=== PATIENT | male | born 1990 | race American Indian/Alaskan Native ===

== ENCOUNTER 2020-04-04 10:15 | Emergency (ER) | payer OTHER ==
[2020-04-04 10:25] VITALS: BP 118/66
--- NOTE | 2020-04-04 10:26 | Emergency Department Report ---
ED Male HPI - General Chief complaint: Urogenital-Male Stated complaint: PAIN IN PENIS Time Seen by Provider: 04/04/20 10:24 Source: patient Mode of arrival: Ambulatory Limitations: No Limitations - History of Present Illness Initial comments: Dysuria and penile dc. Public health risk. Known exposure per woman he was with. no testicular pain VS normal Location: penis Radiation: none Worsens with: urination discharge - Related Data Sexually active: Yes Previous Rx's Medication Instructions Recorded Last Taken Type Azithromycin [Zithromax TAB] 1,000 mg PO ONCE #2 tablet 04/04/20 Unknown Rx ED Review of Systems ROS: Stated complaint: PAIN IN PENIS Other details as noted in HPI Comment: All other systems reviewed and negative ED Past Medical Hx - Past Medical History Previous Medical History?: No - Surgical History Past Surgical History?: Yes Additional Surgical History: Hernia - Social History Smoking Status: Never Smoker Substance Use Type: Alcohol - Medications Home Medications: Home Medications Medication Instructions Recorded Confirmed Last Taken Type Azithromycin [Zithromax TAB] 1,000 mg PO ONCE #2 tablet 04/04/20 Unknown Rx ED Physical Exam - General Limitations: No Limitations General appearance: alert, in no apparent distress - Head Head exam: Present: atraumatic, normocephalic - Eye Eye exam: Present: normal appearance - ENT ENT exam: Present: mucous membranes moist - Neck Neck exam: Present: normal inspection - Respiratory Respiratory exam: Present: normal lung sounds bilaterally. Absent: respiratory distress - Cardiovascular Cardiovascular Exam: Present: regular rate, normal rhythm. Absent: systolic murmur, diastolic murmur, rubs, gallop - GI/Abdominal GI/Abdominal exam: Present: soft, normal bowel sounds - Rectal Rectal exam: Present: deferred - Extremities Exam Extremities exam: Present: normal inspection - Back Exam Back exam: Present: normal inspection - Neurological Exam Neurological exam: Present: alert, oriented X3 - Psychiatric Psychiatric exam: Present: normal affect, normal mood - Skin Skin exam: Present: warm, dry, intact, normal color. Absent: rash ED Course Vital Signs 04/04/20 10:24 Temperature 98.3 F Pulse Rate 83 Respiratory 16 Rate Blood Pressure 118/66 [Right] O2 Sat by Pulse 98 Oximetry ED Medical Decision Making - Medical Decision Making urine gc pending Rocephin 1 GM to left buttocks Rx for 1 gm po azithromycin dc home with safe sex instructions. Vital Signs 04/04/20 10:24 Temperature 98.3 F Pulse Rate 83 Respiratory 16 Rate Blood Pressure 118/66 [Right] O2 Sat by Pulse 98 Oximetry - Differential Diagnosis sti Critical care attestation.: If time is entered above; I have spent that time in minutes in the direct care of this critically ill patient, excluding procedure time. ED Disposition Clinical Impression: STD (male) Disposition: DC-01 TO HOME OR SELFCARE Is pt being admited?: No Does the pt Need Aspirin: No Condition: Stable Additional Instructions: safe sex Prescriptions: Azithromycin [Zithromax TAB] 1,000 mg PO ONCE #2 tablet Referrals: PRIMARY CARE, [Primary Care Provider] - 3-5 Days Forms: Work/School Release Form(ED) Time of Disposition: 10:31
[2020-04-04] MEDS ORDERED: LIDOCAINE-MPF (1%) 10 MG/1 ML VIAL 5 ML INFILTRATI ONE (10:27)
[2020-04-04 13:23] LABS: Bilirubin,Urine NEG (Negative); Blood,Urine NEG (Negative); Color,Urine Yellow (Yellow); Mucus,Urine 2+ /HPF
[2020-04-04 13:25] LABS: WBC,Urine < 1.0 /HPF (0.0-6.0)
== END 2020-04-04 11:00 | disposition home or self-care (01) ==
LOC: ED 10:15
DX: A64 Unspecified sexually transmitted disease (principal); Z79.899 Other long term (current) drug therapy
CPT/HCPCS: 81001; 96372; 99283; J0696

== ENCOUNTER 2020-04-07 14:15 | Emergency (ER) | payer OTHER ==
[2020-04-07 14:39] VITALS: BP 104/62
--- NOTE | 2020-04-07 17:14 | Emergency Department Report ---
ED Male HPI - General Chief complaint: Urogenital-Male Stated complaint: PENIS PAIN Source: patient Mode of arrival: Ambulatory Limitations: No Limitations - History of Present Illness MD Complaint: testicle pain, groin pain - Related Data Previous Rx's Medication Instructions Recorded Last Taken Type Azithromycin [Zithromax TAB] 1,000 mg PO ONCE #2 tablet 04/04/20 Unknown Rx Allergies Allergy/AdvReac Type Severity Reaction Status Date / Time No Known Allergies Allergy Unverified 04/07/20 14:33 ED Review of Systems ROS: Stated complaint: PENIS PAIN Other details as noted in HPI ED Past Medical Hx - Past Medical History Previous Medical History?: No - Surgical History Additional Surgical History: Hernia - Social History Smoking Status: Never Smoker Substance Use Type: None - Medications Home Medications: Home Medications Medication Instructions Recorded Confirmed Last Taken Type Azithromycin [Zithromax TAB] 1,000 mg PO ONCE #2 tablet 04/04/20 Unknown Rx ED Physical Exam - General Limitations: No Limitations ED Course Vital Signs 04/07/20 14:38 Temperature 98.7 F Pulse Rate 69 Respiratory 18 Rate Blood Pressure 104/62 O2 Sat by Pulse 100 Oximetry Critical care attestation.: If time is entered above; I have spent that time in minutes in the direct care of this critically ill patient, excluding procedure time. ED Disposition Condition: Stable Referrals: PRIMARY CARE, [Primary Care Provider] - 3-5 Days
--- NOTE | 2020-04-07 18:34 | Emergency Department Report ---
Chief Complaint: Urogenital-Male Stated Complaint: PENIS PAIN - Exam Vital Signs: Vital Signs 04/07/20 14:38 Temperature 98.7 F Pulse Rate 69 Respiratory 18 Rate Blood Pressure 104/62 O2 Sat by Pulse 100 Oximetry MSE screening note: Focused history and physical exam performed. Due to findings the following was ordered: ED Disposition for MSE Disposition: Z- MED SCREENING EXAM-LEFT Is pt being admited?: No Does the pt Need Aspirin: No Condition: Stable Additional Instructions: Recommend that you follow-up with a urologist, health department or primary care provider for full STD panel. You can take ibuprofen or naproxen which is Aleve for pain. Be sure to increase your water intake by 2 to 3 L daily while taking anti-inflammatories. Referrals: PRIMARY CAREMD [Primary Care Provider] - 3-5 Days EMILIE MENDEZ MD [Staff Physician] - 3-5 Days RAKEL TREVINO JR, MD [Staff Physician] - 3-5 Days COTY LENNON MD [Staff Physician] - 3-5 Days Forms: Work/School Release Form(ED)
== END 2020-04-07 17:29 | disposition left against medical advice (07) ==
LOC: ED 14:15
DX: N48.89 Other specified disorders of penis (principal); Z53.21 Procedure and treatment not carried out due to patient leaving prior to being seen by health care provider